=== PATIENT | male | born 1985 | race Two or more races ===

== ENCOUNTER 2020-11-25 14:52 | Emergency (ER) | payer SELFPAY | END 2020-11-25 15:04 | disposition left against medical advice (07) | LOC: ER 14:52 → EDBD 14:52 → ER 15:04 | DX: T50.901A Poisoning by unspecified drugs, medicaments and biological substances, accidental (unintentional), initial encounter (principal); Z53.21 Procedure and treatment not carried out due to patient leaving prior to being seen by health care provider ==